=== PATIENT | female | born 1985 | race Caucasian/White ===

== ENCOUNTER 2017-09-03 09:55 | Emergency (ER) | payer MEDICAID ==
[~2017-09-03] VITALS: Ht 149.9 cm; Wt 55.5 kg
[~2017-09-03 09:55] MED LIST: PRENAT PO
[2017-09-03 09:59] VITALS: Ht 149.9 cm; Wt 55.5 kg
[2017-09-03] MEDS ORDERED: IBUPROFEN 600 MG TAB PO ONE (11:00)
[2017-09-03 11:02] LABS: URINE BLOOD (Dip) POC Trace-intact (NEGATIVE)
[2017-09-03] MEDS ORDERED: IBUP-1542 PO (11:21)
[2017-09-03] MEDS ORDERED: CEPH-443 PO (11:21)
[2017-09-03] MEDS ORDERED: TRAM50TA2 PO (11:21)
--- NOTE | 2017-09-03 11:25 | ERD ---
ER Documentation Chief Complaint Chief Complaint Flank pain with frequency x 2 weeks HPI This 32-year-old female presents with left low back pain for last 2 weeks. Radiates to her left buttock. She denies any history of trauma. Is worse with moving. She also some urinary frequency. She denies any fevers, vomiting, flank pain. She denies any vaginal discharge. She denies . There is any anesthesia, bowel bladder incontinence, weakness. ROS All systems reviewed and are negative except as per history of present illness. Medications Home Meds Active Scripts Tramadol HCl (Tramadol HCl) 50 Mg Tablet, 50 MG PO Q4 Y for PAIN, #15 TAB Prov:SANJEEV THORNTON MD 09/03/17 Ibuprofen* (Motrin*) 600 Mg Tab, 600 MG PO Q6, #20 TAB Prov:SANJEEV THORNTON MD 09/03/17 Cephalexin* (Keflex*) 500 Mg Capsule, 500 MG PO QID for 5 Days, CAP Prov:SANJEEV THORNTON MD 09/03/17 Reported Medications Multivit/Min/Fol Ac/Iron/Pren* ( S*) 1 Tab Tab, 1 TAB PO DAILY, TAB 12/20/15 Allergies Allergies: Coded Allergies: No Known Drug Allergies (Unverified Allergy, Unknown, 03/26/16) PMhx/Soc Medical and Surgical Hx: pt denies Medical Hx, pt denies Surgical Hx History of Surgery: No Anesthesia Reaction: No Hx Neurological Disorder: No Hx Respiratory Disorders: No Hx Cardiac Disorders: No Hx Psychiatric Problems: No Hx Miscellaneous Medical Probl: No Hx Alcohol Use: No Hx Substance Use: No Hx Tobacco Use: No Smoking Status: Never smoker Physical Exam Vitals Vital Signs Date Time Temp Pulse Resp B/P Pulse Ox O2 Delivery O2 Flow Rate FiO2 09/03/17 09:59 98.1 77 18 118/75 99 Physical Exam Const: [] Alert, [id number]. Head: Atraumatic Eyes: Normal Conjunctiva ENT: Normal External Ears, Nose and Mouth. Neck: Full range of motion..~ No meningismus. Resp: Clear to auscultation bilaterally Cardio: Regular rate and rhythm, no murmurs Abd: Soft, non tender, non distended. Normal bowel sounds Skin: No petechiae or rashes Back: No midline or flank tenderness. Tenderness in the left L4-5 area with spasm and mild tenderness in the body. Mildly positive left straight leg raise. No CVA tenderness. Abdomen soft nontender. Ext: No cyanosis, or edema Neur: Awake and alert Psych: Normal Mood and Affect Results 24 hrs Laboratory Tests Test 09/03/17 11:02 Bedside Urine pH (LAB) 5.5 Bedside Urine Protein (LAB) Negative Bedside Urine Glucose (UA) Negative Bedside Urine Ketones (LAB) Negative Bedside Urine Blood Trace-intact Bedside Urine Nitrite (LAB) Negative Bedside Urine Leukocyte Esterase (L Trace Current Medications Medications (Trade) Dose Ordered Sig/Marina Route PRN Reason Start Time Stop Time Status Last Admin Dose Admin Ibuprofen (Motrin) 600 mg ONCE ONCE PO 09/03/17 11:00 09/03/17 11:01 DC 09/03/17 11:04 Cephalexin (Keflex) 500 mg ONCE ONCE PO 09/03/17 11:30 09/03/17 11:31 Procedures/MDM HCG is negative. Urine shows trace leukocytes and trace hemoglobin. Patient has signs and symptoms of low back pain and sciatica. History and exam does not suggest fracture, dislocation and there is no signs or symptoms to suggest epidural abscess, cauda equina syndrome, sepsis, pyelonephritis. I doubt the findings on urinary related to her back pain but she will treated with Keflex and ibuprofen tramadol and instructions for back exercises, primary care follow- up and return precautions. The patient was stable with no new complaints during the ER course. Clinically, there is no current evidence to suggest meningitis, sepsis, acute abdomen, pneumonia, acute coronary syndrome, pulmonary embolism, or any other emergent condition appearing to require further evaluation or hospitalization. The patient should certainly return for any new or worsening symptoms per the aftercare instructions. They should otherwise follow-up with her primary care doctor for reevaluation this week. Departure Diagnosis: Primary Impression: Low back pain Chronicity: acute Back pain laterality: left Sciatica presence: with sciatica Sciatica laterality: sciatica of left side Qualified Code: M54.42 - Acute left-sided low back pain with left-sided sciatica Additional Impression: UTI (urinary tract infection) Urinary tract infection type: acute cystitis Hematuria presence: without hematuria Qualified Code: N30.00 - Acute cystitis without hematuria Condition: Stable Patient Instructions: Understanding Urinary Tract Infections (UTIs), Back Exercises, Lumbar, Back Pain W/ Sciatica Additional Instructions: orina tiene poquito infeccion, fidencio probablamente musculos y tendones. Cheque otro vez con nettles doctor primario en el proximo serrano or regresa para mas o nueva simptomas. SANJEEV THORNTON MD Sep 03, 2017 11:25
[2017-09-03] MEDS ORDERED: CEPHALEXIN 500 MG CAP PO ONE (11:30)
== END 2017-09-03 11:30 | disposition home or self-care (01) ==
LOC: FTE 09:55
DX: M54.42 Lumbago with sciatica, left side (principal); N30.00 Acute cystitis without hematuria
CPT/HCPCS: 81003; Z7502; Z7610; 99284